=== PATIENT | male | born 1990 | race Caucasian/White ===

== ENCOUNTER 2018-08-10 15:41 | Emergency (ER) | payer SELFPAY ==
[~2018-08-10] VITALS: Wt 74.8 kg
[2018-08-10 19:06] VITALS: BP 138/78; PULSE 114; RESP 20
== END 2018-08-10 16:13 | disposition left against medical advice (07) ==
LOC: E/R 15:41 → FTE 16:13
DX: Z53.21 Procedure and treatment not carried out due to patient leaving prior to being seen by health care provider (principal)